=== PATIENT | male | born 1975 | race Caucasian/White ===

== ENCOUNTER 2017-06-08 23:19 | Emergency (ER) | payer BC ==
[~2017-06-08] VITALS: Ht 170.2 cm; Wt 99.8 kg
[2017-06-08 23:56] LABS: BASO % 0.4 % (0-2); EOS % 2.2 % (0-7); EOSINOPHIL ABSOLUTE COUNT 0.2 tho/cmm (0.0-0.7); HCT-HEMATOCRIT 44.6 % (36.0-53.5); HGB-HEMOGLOBIN 15.3 gm/dl (13.5-17.0); IMMATURE GRANULOCYTES ABSOLUTE 0.01 tho/cmm (0-0.03); IMMATURE GRANULOCYTES PERCENT 0.1 % (0-0.3); LYMPH % 50.6 % (20-45); LYMPH ABSOLUTE COUNT 3.7 tho/cmm (0.8-4.5); MCH (MEAN CORPUSCULAR HGB) 27.6 pg (28.0-32.0); MCHC MEAN CORPUSCULAR HGB CONC 34.3 % (32.0-36.0); MCV (MEAN CELL VOLUME) 80.5 fl (82.0-96.0); MEAN PLATELET VOLUME 10.9 cmc (9.4-12.4); MONO % 8.7 % (0-12); MONOCYTE ABSOLUTE COUNT 0.6 tho/cmm (0.0-1.2); NEUTROPHIL ABSOLUTE COUNT 2.8 tho/cmm (1.6-8.0); NEUTROPHIL-AUTOMATED 2.8 tho/cmm (1.6-8.0); PLATELET COUNT 144 tho/cmm (150-450); RED BLOOD COUNT 5.54 mil/cmm (4.40-5.70); RED CELL DISTRIBUTION WIDTH 13.7 % (12.4-16.4); WHITE BLOOD COUNT 7.3 tho/cmm (4.0-10.0)
[2017-06-09 00:24] LABS: ALB/GLOB RATIO 1.3 (0.8-2.0); ALBUMIN 3.8 g/dl (3.5-5.0); ALKALINE PHOSPHATASE 73 U/L (33-138); ANION GAP 9 mmol/L (0-20); AST/SGOT 22 U/L (10-40); BILIRUBIN,TOTAL 0.3 mg/dl (0.0-1.5); BLOOD UREA NITROGEN 14 mg/dl (6-24); CALCIUM 8.3 mg/dl (8.5-10.5); CARBON DIOXIDE-VENOUS 25 mmol/L (22-32); CHLORIDE 110 mmol/l (96-110); CREATININE 1.09 mg/dl (0.60-1.30); GLUCOSE 103 mg/dL (70-110); LIPASE 163 U/L (73-393); POTASSIUM 3.6 mmol/L (3.7-5.1); SODIUM 140 mmol/L (135-145); eGFR VALUE FOR BLACK >90 mL/Min
[2017-06-09 00:26] LABS: ALT/SGPT 50 U/L (12-78)
[2017-06-09 00:27] LABS: C-REACTIVE PROTEIN <0.3 mg/dl (0-0.9)
[2017-06-09] MEDS ORDERED: PRILOSEC OTC20 M1 PO (01:26)
[2017-06-09] MEDS ORDERED: NORCO 5-325 TA1 EACH PO (01:26)
[2017-06-11] MEDS ORDERED: HYDROCODON-ACE1 EA16 PO (15:27)
[2017-06-11] MEDS ORDERED: ACIDOPHILUS1 EAC5 PO (15:28)
[2017-06-11] MEDS ORDERED: WELLBUTRIN XL150 M1 PO (15:29)
[2017-06-11] MEDS ORDERED: OMEPRAZOLE20 M4 PO (15:29)
== END 2017-06-09 01:40 ==
LOC: EDMED 23:19
PROVIDERS: Emergency Medicine
DX: N20.0 Calculus of kidney (principal); K21.9 Gastro-esophageal reflux disease without esophagitis; F41.9 Anxiety disorder, unspecified; F32.9 Major depressive disorder, single episode, unspecified; F17.210 Nicotine dependence, cigarettes, uncomplicated; Z79.899 Other long term (current) drug therapy
CPT/HCPCS: C9113; J1170; J2405; J7030; Q9967

== ENCOUNTER 2017-06-12 07:04 | Day surgery (SDC) | payer BC ==
[~2017-06-12] VITALS: Ht 170.2 cm; Wt 96.0 kg
[~2017-06-12 07:04] MED LIST: ACIDOPHILUS1 EAC5 PO; HYDROCODON-ACE1 EA16 PO; NORCO 5-325 TA1 EACH PO; OMEPRAZOLE20 M4 PO; PRILOSEC OTC20 M1 PO; WELLBUTRIN XL150 M1 PO
== END 2017-06-12 12:45 ==
LOC: SRG 07:04 → SHSC 07:04 → ORW 09:03 → PACU 10:21 → SHSC 10:55 → SRG 12:45
PROC: 0FT44ZZ Resection of Gallbladder, Percutaneous Endoscopic Approach (ICD-10-PCS; principal; 2017-06-12)
DX: K80.10 Calculus of gallbladder with chronic cholecystitis without obstruction (principal); E66.9 Obesity, unspecified; F41.9 Anxiety disorder, unspecified; F32.9 Major depressive disorder, single episode, unspecified; K21.9 Gastro-esophageal reflux disease without esophagitis; Z79.899 Other long term (current) drug therapy
CPT/HCPCS: J0690; J1885; J3010; J7030